=== PATIENT | female | born 1965 | race Caucasian/White ===

== ENCOUNTER 2016-02-12 06:20 | Day surgery (SDC) | payer MEDICAID ==
[2016-02-12] MEDS ORDERED: MIDAZOLAM 2 MG/2 ML VIAL ONE (07:29)
[2016-02-12] MEDS ORDERED: PROPOFOL 200 MG/20 ML VIAL ONE (07:38)
--- NOTE | 2016-02-12 08:56 | GPN ---
[f rep st] PROCEDURE NOTE PREPROCEDURE DIAGNOSIS: Need for screening colonoscopy. POSTPROCEDURE DIAGNOSIS: Screening colonoscopy. PROCEDURE: Colonoscopy with biopsies. MEDICATIONS: Monitored anesthesia care. INDICATIONS: The patient is a 50-year-old female, who is here for a screening colonoscopy. She is asymptomatic. She has no family history of colon cancer or colon polyps. She is ASA class 2. The risks and benefits of the procedure were discussed with the patient and patient's consent obtained. The risks include but are not limited to bleeding, perforation, and risks related to sedation. DESCRIPTION OF PROCEDURE: The adult colonoscope was advanced to the terminal ileum which appeared normal. The appendiceal orifice, cecum, IC valve, ascending colon, hepatic flexure, transverse colon, splenic flexure, descending colon appeared normal. There were 2 small polyps were found in the sigmoid colon measuring 2 mm each. These polyps were removed using cold biopsy forceps and sent off to pathology. The remaining colon was normal, including retroflexed views in the rectum. IMPRESSION: 2 small colon polyps removed from the sigmoid colon. RECOMMENDATIONS: 1. Discharged to home with escort. 2. Advance diet as tolerated. 3. Continue current medications. 4. Follow up the final pathology results. Results will be available within 10 days. 5. Repeat colonoscopy based on pathology. If either polyp is an adenomatous polyp, I recommend that she repeat a colonoscopy in 5 years. Thank you for allowing me to participate in the care of your patient and please do not hesitate to call with questions. /[id number]/MODL MTDD
== END 2016-02-12 09:40 | disposition home or self-care (01) ==
LOC: FSGY 06:20
PROVIDERS: ATTEND Internal Medicine Gastroenterology
PROC: 0DBN8ZX Excision of Sigmoid Colon, Via Natural or Artificial Opening Endoscopic, Diagnostic (ICD-10-PCS; principal; 2016-02-12 07:45)
DX: K63.5 Polyp of colon (principal); E03.9 Hypothyroidism, unspecified; E78.00 Pure hypercholesterolemia, unspecified
CPT/HCPCS: J2250; J2704

== ENCOUNTER 2016-06-01 12:34 | Emergency (ER) | payer MEDICAID ==
[2016-06-01 12:50] VITALS: RESP 16; TEMP 98.8
[2016-06-01] MEDS ORDERED: TRIAMCINOLONE ACETONIDE 40 MG/ML VIAL IM ONE (14:29)
--- NOTE | 2016-06-01 14:54 | UCPHY ---
H & P Time Seen by Provider: 06/01/16 13:56 Patient Type: New HPI/ROS: CHIEF COMPLAINT: Swollen knee HISTORY OF PRESENT ILLNESS: 51-year-old female states she developed pain in her right knee after walking with a limp for several days. Patient had a flare of gout in her right foot which meant that she was walking with a limp. She feels that this stressed her right knee. She was seen by her chiropractor yesterday who did an adjustment on the knee. Last night and this morning she notes increasing swelling of the knee and pain. No direct trauma. No fall. No fevers. No erythema. No prior history of gout in the knee. REVIEW OF SYSTEMS: Aside from elements discussed in the HPI, a comprehensive 10-point review of systems was reviewed and is negative. PAST MEDICAL HISTORY: Gout, hypothyroid SOCIAL HISTORY: . Patient reports she is going to [place] for a vacation in 3 days. GENERAL APPEARANCE: Alert, moderate distress secondary to pain in the knee. FOCUSED EXAM OF right knee : Moderate swelling in the prepatellar bursa with limited range of motion secondary to discomfort. Unable to fully flex secondary to swelling. Distal neurovascularly intact. Neurovascular exam: Good capillary refill, normal motor exam, normal neurologic exam. Smoking Status: Never smoked Constitutional: Initial Vital Signs Temperature (C) 37.1 C 06/01/16 12:47 Heart Rate 86 06/01/16 12:47 Respiratory Rate 16 06/01/16 12:47 Blood Pressure 118/79 06/01/16 12:47 O2 Sat (%) 94 06/01/16 12:47 O2 Delivery Mode Room Air Allergies/Adverse Reactions: Sulfa (Sulfonamide Antibiotics) Allergy (Verified 01/30/16 11:59) Home Medications: Medication Instructions Recorded [place] Thyroid 01/30/16 Lipitor 01/30/16 Medical Decision Making - Diagnostics Imaging Results: Imaging Impressions Knee X-Ray 06/01/16 12:50 Impression: Moderate effusion suprapatellar bursa. Otherwise, normal right knee series. Procedures: Procedure: Arthrocentesis. Indication: Evaluation for the possibility of septic joint and reduction in pain secondary to significant joint effusion. Risks, benefits, alternatives of the procedure were discussed with the patient and consent obtained. The patient was prepped and draped in the usual sterile fashion over the right knee joint. Local anesthesia was provided with 1% lidocaine. The joint space was entered with a 18 gauge gauge needle and 40 cc of straw-colored fluid was obtained. There were no complications. The procedure was performed by myself. 40 mg of Kenalog was instilled in the knee following the procedure. ED Course/Re-evaluation: 51-year-old with joint effusion after having her knee manipulated by a chiropractor yesterday. Effusion was tapped to provide some relief to the patient who is set to go to [place] in 2 days. Patient tolerated the procedure well. Kenalog was instilled. Joint effusion was sent for crystals and cell counts and other fluid studies. These will be available tomorrow. Patient was advised to call back. Quentin wrap, and crutches were provided. Differential Diagnosis: Differential diagnoses for the patient's symptom complex was considered including but not limited to septic joint, gouty arthritis, well as pseudogout, osteoarthritis, trauma. - Data Points Laboratory Results: 06/01/16 14:55 Synovial Source Pending Synovial Color Pending Synovial Appearance Pending Synovial WBC Pending Synovial RBC Pending Synovial Crystals Pending Medications Given: Discontinued Medications Triamcinolone Acetonide (Kenalog-40) 40 mg IM EDNOW ONE Stop: 06/01/16 14:30 Last Admin: 06/01/16 14:40 Dose: 40 mg Departure - Departure Disposition: Home, Routine, Self-Care Clinical Impression: Knee effusion, right Knee pain, right Qualifiers: Chronicity: acute Qualified Code(s): M25.561 - Pain in right knee Right knee sprain Qualifiers: Encounter type: initial encounter Involved ligament of knee: unspecified ligament Qualified Code(s): S83.91XA - Sprain of unspecified site of right knee , initial encounter Condition: Good Instructions: Swollen Knee Joint (ED) Additional Instructions: Please wear the Quentin bandage to keep the swelling at a minimum. Wear the knee immobilizer as needed for comfort. The fluid which was drawn from your knee was sent for various studies. Please call urgent care tomorrow for these results. Okay to use ibuprofen as needed for pain. Referrals: Piedad Boyer MD [Primary Care Provider] - As per Instructions - PQRS PQRS Measurement: Not applicable
[2016-06-01 15:26] VITALS: BP 132/72; PULSE 80; O2SAT 93
[2016-06-01 16:43] LABS: WBC, SYNOVIAL FLUID 19211 /mm3 (0-150)
[2016-06-01 17:01] LABS: CRYSTALS, SYNOVIAL FLUID NONE SEEN (NONE SEEN)
== END 2016-06-01 15:15 | disposition home or self-care (01) ==
LOC: CED 12:34
PROC: 0S9C3ZZ Drainage of Right Knee Joint, Percutaneous Approach (ICD-10-PCS; principal; 2016-06-01)
DX: M25.461 Effusion, right knee (principal); Z88.2 Allergy status to sulfonamides
CPT/HCPCS: 20610-PO; 73564-PO; 99202-PO; G0463-PO; J3301; L1830

== ENCOUNTER 2016-10-07 14:53 | Emergency (ER) | payer MEDICAID ==
--- NOTE | 2016-10-07 15:45 | EDPHY ---
H & P Time Seen by Provider: 10/07/16 15:26 HPI/ROS: HPI Left knee swelling and pain. 51-year-old female by private vehicle. She complains of swelling and pain to the left knee. No history of trauma. Ongoing for 3 weeks. Saw her primary care physician a couple of weeks ago. Arthrocentesis was not performed at that time. X-rays were ordered through her primary care physician but she never followed up on these. She reports the knee started feeling better a week ago but then started swelling and becoming painful again over the last 5-7 days. She had very similar pain and swelling to the right knee which was also atraumatic back in May. Arthrocentesis and sign do feel fluid analysis performed at that time. According to the patient the synovial fluid analysis was unremarkable. No history of gouty arthritis or infectious etiology. ROS: Constitutional: No fever, no chills. No weakness. Eyes: No discharge. No changes in vision. ENT: No sore throat. No nasal congestion or rhinorrhea. Respiratory: No cough. No shortness of breath. Cardiac: No chest pain, no palpitations. Gastrointestinal: No abdominal pain, no vomiting, no diarrhea. Genitourinary: No hematuria. No dysuria or increased frequency with urination. Musculoskeletal: No back pain. No neck pain. As above. Skin: No rashes. Neurological: No headache. No focal weakness or altered sensation. Past medical history: As above. Hypothyroid. Social history: Here by herself. Physical Exam: General Appearance: Alert, no distress. This patient is responding to questions appropriately and in full sentences. This patient appears well- hydrated and well-nourished. Eyes: Pupils equal and round no pallor or injection. No lid edema, erythema or injection. Right knee exam: Moderate effusion. No erythema. Mild warmth on palpation of the knee relative to the right knee. Joint stability is normal. Stable to anterior and posterior drawer testing and valgus and varus stress testing. Right lower extremity is neurovascularly intact. Neurological: Motor sensory function is grossly intact. Cranial nerves are normal. Gait is normal. Skin: Warm and dry, no rashes. Musculoskeletal: Neck is supple and nontender. Extremities are symmetrical. All joints range without pain or impingement. Psychiatric: No agitation. No depression. Database: EKG: Imaging: Right knee x-ray series: Effusion noted. No underlying cause appreciated. Negative for fracture, subluxation, dislocation. Interpreted by me. Procedures: Procedure: Arthrocentesis. After verbal informed consent was obtained explaining the risks including but not limited to infection and bleeding a arthrocentesis was performed on the right knee. The patient was prepped and draped in the usual sterile fashion. The joint was anesthetized with 0.5% bupivacaine without epinephrine. Approximately 20 cc of serosanguineous synovial fluid was obtained. There were no complications. The procedure was performed by myself. Emergency department course: Right knee x-ray series will be obtained. Likely etiology is osteoarthritis. Patient is requesting arthrocentesis for further evaluation. This procedure performed as above after the patient's full consent. Synovial fluid had to be sent to [facility]. I explained to the patient that there would be some delay for we had results. She is willing to wait for these results. Due to error on the part of the laboratory at [facility] has been another delay in obtaining this patient's results. 7:10 p.m., fluid shows approximately 25,000 white cells. G stain shows polymorphic nuclear white cells but no organisms. Still waiting on crystal analysis. Patient is requesting discharge. We have her contact information. We will call her with results of crystal analysis. I have discussed follow-up with her with Orthopedics. If she does require antibiotic treatment or other prescriptions we will notify her regarding this as soon as we have her synovial fluid analysis completed. She endorses this plan. Return to emergency department precautions discussed with her. All of her questions were answered. She was discharged in good condition. 8:35 p.m., I spoke with the patient over the phone. The results of her synovial fluid analysis were discussed with her. The differential diagnosis was reviewed. She is feeling much better at this time after removal of some synovial fluid. I compared the results of her previous visit in May of this year when she had arthrocentesis on her right knee. The synovial fluid analysis is similar. I explained to her that I felt this was some type of an arthritis but that it was important that she follow up with her primary care physician for re-evaluation and either orthopedic a rheumatology referral in repeat evaluation. She stated that she would do this. I gave her 2 graphic design specialist call for follow-up. She felt comfortable with this plan. I reviewed return to emergency department precautions thoroughly with her and explained that if the knee became more painful, swollen, red and warm she was to return to the emergency department at the [facility] immediately for re-evaluation. Differential Diagnosis: The differential diagnosis on this patient includes but is not limited to osteoarthritis, gouty arthritis, septic arthritis. This represents a partial list of diagnoses considered. These considerations are based on history, physical exam, past history, reassessment and diagnostic testing. Smoking Status: Never smoked Constitutional: Initial Vital Signs Temperature (C) 36.7 C 10/07/16 15:32 Heart Rate 76 10/07/16 15:32 Respiratory Rate 20 10/07/16 15:32 Blood Pressure 149/91 H 10/07/16 15:32 O2 Sat (%) 92 10/07/16 15:32 O2 Delivery Mode Room Air Allergies/Adverse Reactions: Sulfa (Sulfonamide Antibiotics) Allergy (Verified 10/07/16 15:30) Home Medications: Medication Instructions Recorded [place] Thyroid 01/30/16 Lipitor 01/30/16 Medical Decision Making - Diagnostics Imaging Results: Imaging Impressions Knee X-Ray 10/07/16 15:40 Impression: Effusion without underlying cause. If symptoms persist, consider knee MRI. - Data Points Laboratory Results: 10/07/16 Unknown Fl Pathologist Review Pending Synovial Source SYNOVIAL Synovial Color ORANGE H (CLS/PALE YL) Synovial Appearance HAZY H (CLEAR) Synovial WBC 96114 /mm3 H /mm3 (0-150) Synovial RBC 60875 /mm3 H /mm3 (0-0) Synovial Neutrophils 84 % H % (0-25) Synovial Lymphocytes 12 % % Synov Monos/Macrophage 4 % % Synovial Crystals Pending Microbiology Results: MICROBIOLOGY 10/07/16 Unknown Knee - Aspirate Gram Stain - Final Departure - Departure Disposition: Home, Routine, Self-Care Clinical Impression: Left knee pain, Arthritis of knee, left Condition: Good Instructions: Osteoarthritis (ED) Additional Instructions: Read and follow provided instructions. Follow-up with your primary care physician in 1-2 days for re-evaluation and referral to an graphic design specialist for further evaluation and management as discussed. I have also provided you with to graphic design specialist for referral you can call directly. Ibuprofen dosin mg every 6 hours with meals for the next 3 days only. Return to the emergency department for worsening pain, redness, discoloration, fever, swelling, warmth or other serious concerns. Referrals: IKER ROB,. [Primary Care Provider] - As per Instructions Erwin Cervantes MD [Medical Doctor] - As per Instructions Raul Montiel MD [Medical Doctor] - As per Instructions
[2016-10-07 17:57] LABS: BODY FLUID CELL COUNT SYNOVIAL FLUID
[2016-10-07 18:51] LABS: WBC, SYNOVIAL FLUID 25667 /mm3 (0-150)
[2016-10-07 19:24] VITALS: BP 122/72; PULSE 77; RESP 16; TEMP 98.6; O2SAT 97
[2016-10-07 19:39] LABS: CRYSTALS, SYNOVIAL FLUID NONE SEEN (NONE SEEN)
== END 2016-10-07 19:27 | disposition home or self-care (01) ==
LOC: CED 14:53
PROC: 0M9P3ZZ Drainage of Left Knee Bursa and Ligament, Percutaneous Approach (ICD-10-PCS; principal; 2016-10-07)
DX: M17.9 Osteoarthritis of knee, unspecified (principal); M25.462 Effusion, left knee
CPT/HCPCS: 73562-PO

== ENCOUNTER 2018-04-10 11:02 | Emergency (ER) | payer MEDICAID | END 2018-04-10 11:39 | disposition home or self-care (01) ==